=== PATIENT | male | born 1975 | race African-American/Black ===

== ENCOUNTER 2019-01-29 12:47 | Emergency (ER) | payer SELFPAY ==
[~2019-01-29] VITALS: Ht 180.3 cm; Wt 86.0 kg
[2019-01-29] MEDS ORDERED: KETOROLAC 60MG/2ML VIAL IM STA (14:24)
[2019-01-29 14:37] VITALS: BP 139/82
== END 2019-01-29 16:20 | disposition home or self-care (01) ==
LOC: ER 15:57
DX: M25.511 Pain in right shoulder (principal); H40.9 Unspecified glaucoma
CPT/HCPCS: 73030; 96372; 99283; J1885

== ENCOUNTER 2019-04-27 19:51 | Emergency (ER) | payer SELFPAY ==
[~2019-04-27] VITALS: Ht 180.3 cm; Wt 87.0 kg
[2019-04-27 20:56] VITALS: BP 136/77
[2019-04-27] MEDS ORDERED: KETOROLAC 60MG/2ML VIAL IM ONE (21:30)
[2019-04-27 22:07] LABS: CLARITY URINE CLEAR (CLEAR); COLOR URINE YELLOW (YELLOW); KETONES URINE NEGATIVE (NEGATIVE); LEUKOCYTE ESTERASE URINE NEGATIVE (NEGATIVE); NITRITE URINE NEGATIVE (NEGATIVE); OCCULT BLOOD URINE NEGATIVE (NEGATIVE); PH URINE 5.5 (4.5-8.0); PROTEIN URINE NEGATIVE (NEGATIVE); SPECIFIC GRAVITY URINE 1.024 (1.005-1.030); UROBILINOGEN URINE 0.2 E.U./dL (0.2-1.0)
== END 2019-04-28 00:06 | disposition home or self-care (01) ==
LOC: ER 19:51
DX: R10.32 Left lower quadrant pain (principal); F12.10 Cannabis abuse, uncomplicated; Z87.828 Personal history of other (healed) physical injury and trauma; Z98.890 Other specified postprocedural states
CPT/HCPCS: 81003; 99283; J1885

== ENCOUNTER 2019-05-16 12:30 | Emergency (ER) | payer SELFPAY ==
[~2019-05-16] VITALS: Ht 180.3 cm; Wt 89.0 kg
[2019-05-16 16:09] VITALS: BP 151/69
[2019-05-16] MEDS ORDERED: HYDROCODONE/ACETAMINOPHEN 5/325MG TABLET PO ONE (18:00)
== END 2019-05-16 18:41 | disposition home or self-care (01) ==
LOC: ER 12:30
DX: S30.0XXA Contusion of lower back and pelvis, initial encounter (principal); S10.83XA Contusion of other specified part of neck, initial encounter; V49.49XA Driver injured in collision with other motor vehicles in traffic accident, initial encounter; Y93.89 Activity, other specified; Y92.410 Unspecified street and highway as the place of occurrence of the external cause
CPT/HCPCS: 99282